=== PATIENT | male | born 1960 | race Caucasian/White ===

== ENCOUNTER 2017-04-25 09:00 | Inpatient (IN) | payer MEDICARE ==
--- NOTE | ~2017-04-25 | HP ---
Unit #: [id number] #: [id number] Patient: AGUSTIN ROCK JR [id number] [place] [address] [id number] MR#: [id number] NAME: AGUSTIN ROCK JR ROOM: P181 Age: 56 Sex: M Admission Date: 04/25/2017 : 1960 Attending Physician: Carlo Holland M.D. Admitting Physician: Carlo Holland M.D. Primary Care Physician: Linda Polo HISTORY AND PHYSICAL HISTORY OF PRESENT ILLNESS Agustin is a 56 year old, admitted to [facility] because of his abuse of alcohol. He is detoxing. PAST MEDICAL HISTORY 1. Long history of alcohol abuse. 2. History of withdrawal seizures. 3. High blood pressure. 4. Chronic obstructive pulmonary disease. 5. Coronary artery disease. a. Angioplasty with stents. b. History of myocardial infarction. 6. History of kidney stones. a. Multiple lithotripsies. PAST SURGICAL HISTORY ALLERGIES No known drug allergies. SOCIAL HISTORY He does not smoke, drinks at least eight beers on a daily basis, and denies illicit drug use. FAMILY HISTORY Medically noncontributory. REVIEW OF SYSTEMS CONSTITUTIONAL: No fever or chills. HEENT: Denies any sore throat, ear pain or runny nose. CARDIOVASCULAR: Denies chest pain, irregular heart rhythm or palpitations. CHEST: Denies shortness of breath or cough. No hemoptysis. GASTROINTESTINAL: Denies nausea, vomiting, diarrhea or chronic constipation. ENDOCRINE: Denies history of increased thirst or urination. No recent significant weight loss or gain. GENITOURINARY: Denies dysuria, frequency, or hematuria. SKIN: Denies any rashes. HEMATOLOGIC: Denies history of increased bleeding or bruising. MUSCULOSKELETAL: Denies any hot, swollen joints. No generalized muscle pain. NEUROLOGIC: Denies problems with vision or speech. No frequent, severe headaches. No numbness, tingling or weakness in any extremities. Denies Unit #: [id number] #: [id number] Patient: AGUSTIN ROCK JR loss of bladder or bowel control. CURRENT MEDICATIONS Detox protocol. PHYSICAL EXAMINATION GENERAL: Alert, well-nourished, no apparent distress. VITAL SIGNS: Blood pressure 144/106, heart rate 60, respirations 16, and temperature 98.6. WEIGHT: 167 pounds. HEIGHT: 5 feet 5 inches. SKIN: Warm and dry without rash or lesion. HEENT: Normocephalic. TMs not viewed. Oral and nasal passages clear. Conjunctivae clear. PERRLA. EOMs intact. NECK: Supple without lymphadenopathy or thyromegaly. HEART: Regular rate and rhythm without murmur. LUNGS: Clear. ABDOMEN: Soft, nontender. : Not done. EXTREMITIES: No evidence of cyanosis, clubbing or edema. Moves all without focal deficit. NEUROLOGICAL: Grossly within normal limits. Cranial Nerves: II: Visual brownlee are intact. III, IV AND : Extraocular movements are intact. Pupils are equal, round and reactive to light. V: Facial sensation is grossly normal. VII: Facial movements and expression are normal. VIII: Auditory acuity grossly intact. IX, X: Uvula is midline. Phonation is normal. XI: Patient shrugs shoulders and turns head normally. XII: Tongue protrudes in the midline. Sensory and Motor Function: Sensory and motor sensation is grossly normal. Motor: moves all extremities well. Coordination: Gait is normal. Deep Tendon Reflexes: Intact. IMPRESSION Psychiatric admission. RECOMMENDATIONS Psychiatric, per psychiatrist. MEDICAL I see no contraindications to participating in facility's activities. MEDICAL PROGNOSIS Good. MEDICAL CONDITION Stable. Dictated by... Madai Ramries P.A.-C. for Renetta Foley/viviana TD: 04/26/2017 11:18 JOB #: [id number] Unit #: [id number] #: [id number] Patient: AGUSTIN ROCK JR HISTORY AND PHYSICAL Page 1 of 1 X Madai Ramires HISTORY AND PHYSICAL
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
--- NOTE | ~2017-04-25 | PN ---
Unit #: [id number] #: [id number] Patient: APOLINAR ROCK [id number] [facility] [address] [place] [address] [id number] MR#: [id number] NAME: APOLINAR ROCK JR ROOM: 81 Age: 56 Sex: M Admission Date: 04/25/2017 : 1960 Attending Physician: Carlo Holland M.D. Admitting Physician: Carlo Holland M.D. Primary Care Physician: Linda LEE PROGRESS NOTES DATE 04/27/2017 DISCUSSION The patient offers no new complaints today. He is active within the therapeutic milieu and his detox continues uneventfully. He plans to return to his home following completion of detox. Dictated by... Carlo Holland M.D. CB/gosia TD: 04/27/2017 21:24 JOB #: [id number] [facility] PROGRESS NOTES Page 1 of 1 X Carlo Holland MD X PROGRESS NOTE
--- NOTE | ~2017-04-25 | CO ---
Unit #: [id number] #: [id number] Patient: AGUSTIN ROCK JR [id number] [place] [address] [id number] I MR#: [id number] NAME: AGUSTIN ROCK JR ROOM: P181 Age: 56 Sex: M Admission Date: 04/25/2017 : 1960 Attending Physician: Carlo Holland M.D. Primary Care Physician: Linda Polo Consultation Date: 04/26/2017 CONSULTATION REPORT SUBJECTIVE Agustin is a 56-year-old admitted because of his abuse of alcohol. Since admission, he has developed some swelling in his lower extremities. He denies any chest pain, shortness of breath, or irregular heartbeats. We have been asked to assess and give recommendations. OBJECTIVE GENERAL: Alert, obese, no apparent distress. VITAL SIGNS: Blood pressure 150/92, heart rate 80, respirations 16, temperature 98.6. CARDIOVASCULAR: Rate and rhythm is regular. CHEST: Lungs clear. ABDOMEN: Obese, soft, nontender. No ascites noted. EXTREMITIES: Trace edema bilaterally, lower extremities. ASSESSMENT Development of trace edema in his lower extremities during alcohol detox. This is most likely due to electrolyte corrections and fluid shifting during his detox. PLAN Continue hydration and three meals a day. This should resolve without further intervention. If he has any problems, he needs to follow up with his primary care. Dictated by... Madai Ramires P.A.-C. for Renetta Foley/carlos TD: 05/02/2017 02:28 JOB #: [id number] Unit #: [id number] #: [id number] Patient: AGUSTIN ROCK JR CONSULTATION REPORT Page 1 of 1 X Madai Ramires CONSULTATION REPORT
--- NOTE | ~2017-04-25 | DS ---
Unit #: [id number] #: [id number] Patient: APOLINAR ROCK JR [id number] [place] [address] [id number] MR#: [id number] NAME: APOLINAR ROCK JR ROOM: 81 Age: 56 Sex: M Admission Date: 04/25/2017 : 1960 Discharge Date: 04/30/2017 Attending Physician: Carlo Holland M.D. Primary Care Physician: Linda Polo DISCHARGE SUMMARY REASON FOR ADMISSION The patient is a 56-year-old white male, admitted for alcohol detox. HOSPITAL COURSE The patient was admitted to the [address] [place] [address] and placed on routine detoxification protocol for alcohol. His stay in the hospital was a brief and uneventful one with his detox going smoothly and the patient participated actively within the therapeutic milieu. By 04/30/2017, the patient was in bright spirits and exhibited no signs or symptoms of withdrawal and discharge was ordered. FINAL DIAGNOSES Alcohol use disorder. DISPOSITION ON DISCHARGE The patient is discharged on no psychotropic or other medications. FOLLOWUP Followup will take place through the auspices of community mental health resources. PROGNOSIS The patient's prognosis is considered fair. Dictated by... Carlo Holland M.D. CB/carlos TD: 04/30/2017 15:42 JOB #: [id number] DISCHARGE SUMMARY Page 1 of 1 X Carlo Holland MD X DISCHARGE SUMMARY
--- NOTE | ~2017-04-25 | PN ---
Unit #: [id number] #: [id number] Patient: APOLINAR ROCK [id number] [facility] [address] [place] [address] [id number] I MR#: [id number] NAME: APOLINAR ROCK JR ROOM: P181 Age: 56 Sex: M Admission Date: 04/25/2017 : 1960 Attending Physician: Carlo Holland M.D. Admitting Physician: Carlo Holland M.D. Primary Care Physician: Linda LEE PROGRESS NOTES DATE 04/28/2017 DISCUSSION The patient offers no new complaints today. His detox continues uneventfully and is active within the therapeutic milieu. We expect early week discharge. Dictated by... Carlo Holland M.D. CB/gosia TD: 04/28/2017 14:12 JOB #: [id number] [facility] PROGRESS NOTES Page 1 of 1 X Carlo Holland MD X PROGRESS NOTE
--- NOTE | ~2017-04-25 | PN ---
Unit #: [id number] #: [id number] Patient: APOLINAR ROCK JR [id number] [facility] [address] [place] [address] [id number] I MR#: [id number] NAME: APOLINAR ROCK JR ROOM: 81 Age: 56 Sex: M Admission Date: 04/25/2017 : 1960 Attending Physician: Carlo Holland M.D. Admitting Physician: Carlo Holland M.D. Primary Care Physician: Linda LEE PROGRESS NOTES DATE 04/29/2017 DISCUSSION The patient continues active participation within the therapeutic milieu. His most recent CIWA score was a 0 indicating completion of detox and probable a.m. discharge. Dictated by... Carlo Holland M.D. CB/pardeep TD: 04/30/2017 02:59 JOB #: [id number] [facility] PROGRESS NOTES Page 1 of 1 X Carlo Holland MD PROGRESS NOTE
[~2017-04-25 09:00] MED LIST: ACETAMINOPHEN PR; ASPIRIN; ASPIRIN PO; ATENOLOL; ATENOLOL PO; ATIVAN PO; BACTROBAN15 GM TOP; BUSPAR PO; CIPRO250 MG PO; CITALOPRAM HBR40 MG PO; HYDROCODON-ACE1 EAC7 PO; KEPPRA500 M2 PO; LIBRIUM PO; MEVACOR; NEURONTIN PO; PERCOCET PO; PHENERGAN PO; PRILOSEC PO; TRAZODONE PO; ZOCOR PO
[2017-04-26 09:56] LABS: BASOPHIL% 0.5 % (0-2.5); EOSINOPHIL# 0.1 X10e3 (0-0.7); EOSINOPHIL% 2.3 % (0.0-7.0); HEMATOCRIT 42.7 % (38.0-50.0); HEMOGLOBIN 14.1 gm/dL (13.0-16.0); LYMPHOCYTE# 1.4 X10e3 (1.0-3.5); LYMPHOCYTE% 31.5 % (17.0-45.0); MEAN CELL VOLUME 89.8 FL (83-96); MEAN CORPUSCULAR HEMOGLOBIN 29.6 PG (28-34); MEAN PLATELET VOLUME 6.8 FL (6.5-11.5); MONOCYTE# 0.7 X10e3 (0-1.0); MONOCYTE% 15.3 % (3.0-12.0); NEUTROPHIL# 2.3 X10e3 (1.5-7.1); NEUTROPHIL% 50.4 % (40-75); PLATELET COUNT 120 X10e3 (140-420); RED BLOOD COUNT 4.76 X10e (3.90-5.60); RED CELL DISTRIBUTION WIDTH 14.5 % (11.0-15.5); WHITE BLOOD COUNT 4.5 X10e3 (4.0-10.5)
[2017-04-26 09:57] LABS: DIFF IND NO
[2017-04-26 10:04] LABS: ALBUMIN SERUM 3.6 g/dL (3.5-5.0); BILIRUBIN,TOTAL 1.6 mg/dL (0.2-2.0); BUN/CREATININE RATIO 16.66; CREATININE SERUM 0.6 mg/dL (0.6-1.4); GLOM FILT RATE Estimated 111.7 mL/min (>60); POTASSIUM 3.6 mmol/L (3.5-5.1); PROTEIN TOTAL SERUM 6.3 g/dL (6.0-8.3)
[2017-04-29 11:55] LABS: URINE APPEARANCE CLEAR; URINE BILIRUBIN NEG (NEG); URINE BLOOD NEG (NEG); URINE COLOR DK YELLOW; URINE GLUCOSE NEG (NEG); URINE KETONE NEG (NEG); URINE LEUKOCYTE ESTERASE NEG (NEG); URINE NITRATE NEG (NEG); URINE PH 5.5 (5-8); URINE PROTEIN NEG (NEG); URINE SPECIFIC GRAVITY 1.016 (1.003-1.035); URINE UROBILINOGEN 0.2 MG/DL (NEG)
[2017-04-29 12:32] LABS: AMPHETAMINE NEG (NEG); BARBITURATES NEG (NEG); BENZODIAZEPINES POS (NEG); COCAINE NEG (NEG); MARIJUANA POS (NEG); OPIATES NEG (NEG); TRICYCLIC ANTIDEPRESSANTS NEG (NEG); U METHADONE NEG (NEG)
== END 2017-04-30 15:58 | disposition home or self-care (01) | DRG 897 ==
LOC: P1E 14:39
PROVIDERS: Specialist
PROC: HZ2ZZZZ Detoxification Services for Substance Abuse Treatment (ICD-10-PCS; principal; 2017-04-25)
DX: F10.10 Alcohol abuse, uncomplicated (principal); J44.9 Chronic obstructive pulmonary disease, unspecified; F34.1 Dysthymic disorder; Z87.820 Personal history of traumatic brain injury; I25.2 Old myocardial infarction; I25.10 Atherosclerotic heart disease of native coronary artery without angina pectoris; Z95.5 Presence of coronary angioplasty implant and graft; Z87.442 Personal history of urinary calculi; R60.0 Localized edema
CPT/HCPCS: 80053; 80307; 81003; 85025; 86592